=== PATIENT | female | born 2005 | race Caucasian/White ===

== ENCOUNTER 2024-01-19 17:27 | Emergency (ER) | payer OTHER ==
[2024-01-19 17:43] VITALS: BP 113/68; PULSE 96; RESP 16; TEMP 98.3; BMI 20.4
[2024-01-19 17:54] LABS: EPI CELLS 9 /uL (0-25.1); HYALINE CASTS 1 /uL (0-3.1); URINE APPEARANCE CLEAR; URINE BACTERIA 200 /uL (0-1359); URINE BILIRUBIN NEGATIVE (NEGATIVE); URINE COLOR YELLOW; URINE GLUCOSE (UA) NEGATIVE (NEGATIVE); URINE KETONE TRACE (NEGATIVE); URINE LEUK ESTERASE 2+ (NEGATIVE); URINE NITRITE NEGATIVE (NEGATIVE); URINE PROTEIN NEGATIVE (NEGATIVE); URINE RBC 28 /uL (0-23.9); URINE WBC 145 /uL (0-25.8)
[2024-01-19] MEDS ORDERED: CEPHALEXIN MONOHYDRATE 500 MG CAPSULE (UD) ONE (18:28)
[2024-01-19 18:30] LABS: HCG,QUALITATIVE URINE Negative
[2024-01-19] MEDS: CEPHALEXIN 250 MG/5 ML ORAL SUSPENSION PO ONE (18:34)
== END 2024-01-19 18:36 | disposition home or self-care (01) ==
LOC: JER 17:27
DX: R35.0 Frequency of micturition (principal); R30.0 Dysuria; R39.15 Urgency of urination; N39.0 Urinary tract infection, site not specified
CPT/HCPCS: 81003; 84703; 87086; 99283-25

== ENCOUNTER 2024-03-24 14:40 | Emergency (ER) | payer OTHER ==
[2024-03-24 14:56] VITALS: BP 106/59; PULSE 62; RESP 18; TEMP 98; BMI 19.8
[2024-03-24 17:03] LABS: PH,URINE 5.5 (5.0-8.0); URINE APPEARANCE CLEAR; URINE BILIRUBIN NEGATIVE (NEGATIVE); URINE COLOR YELLOW; URINE GLUCOSE (UA) NEGATIVE (NEGATIVE); URINE KETONE TRACE (NEGATIVE); URINE LEUK ESTERASE NEGATIVE (NEGATIVE); URINE NITRITE NEGATIVE (NEGATIVE); URINE PROTEIN NEGATIVE (NEGATIVE)
[2024-03-24 17:06] LABS: HCG,QUALITATIVE URINE Negative
[2024-03-24 18:09] LABS: SYPHILIS W/ RPR CONF NON-REACTIVE (NONREACTIVE)
[2024-03-24] MEDS ORDERED: valACYclovir HCL 500 MG TABLET (FP) ONE (18:12)
[2024-03-24] MEDS: valACYclovir HCL 500 MG TABLET (FP) PO ONE (18:15)
[2024-03-24 18:38] LABS: HIV INTERPRETATION NEGATIVE (NEGATIVE)
== END 2024-03-24 19:10 | disposition home or self-care (01) ==
LOC: JERFT 14:40
DX: A60.09 Herpesviral infection of other urogenital tract (principal); N89.8 Other specified noninflammatory disorders of vagina; Z11.3 Encounter for screening for infections with a predominantly sexual mode of transmission
CPT/HCPCS: 36415; 81003; 84703; 86695; 86696; 86780; 87070; 87086; 87205; 87389; 87491; 87529; 87591; 87661; 99283-25

== ENCOUNTER 2024-03-29 11:01 | Emergency (ER) | payer OTHER ==
[2024-03-29 11:15] VITALS: BP 101/61; PULSE 80; RESP 18; TEMP 98.5; BMI 20.4
[2024-03-29 12:25] LABS: HCG,QUALITATIVE URINE Negative
[2024-03-29 12:32] LABS: URINE APPEARANCE Clear; URINE BILIRUBIN Negative (NEGATIVE); URINE COLOR Yellow; URINE GLUCOSE (UA) Negative (NEGATIVE); URINE KETONE Negative (NEGATIVE); URINE LEUK ESTERASE Negative (NEGATIVE); URINE NITRITE Negative (NEGATIVE); URINE PROTEIN Negative (NEGATIVE); URINE UROBILINOGEN 0.2 mg/dL (0.2-1.0)
[2024-03-29 13:46] LABS: EPI CELLS 12 /uL (0-25.1); HYALINE CASTS 0 /uL (0-3.1); URINE BACTERIA 35 /uL (0-1359); URINE RBC 7 /uL (0-23.9); URINE WBC 11 /uL (0-25.8)
[2024-03-29] MEDS ORDERED: FLUCONAZOLE 150 MG TABLET PO ONE (15:29)
[2024-03-29] MEDS: FLUCONAZOLE 150 MG TABLET PO ONE (15:41)
== END 2024-03-29 15:43 | disposition home or self-care (01) ==
LOC: JER 11:01
DX: R10.2 Pelvic and perineal pain (principal); R10.30 Lower abdominal pain, unspecified
CPT/HCPCS: 36415; 76830-TC; 81003; 84703; 87070; 87086; 87205; 87491; 87591; 87661; 99284-25